=== PATIENT | female | born 1940 | race Caucasian/White ===

== ENCOUNTER 2019-03-15 08:57 | Observation (INO) | payer OTHER ==
--- NOTE | 2019-03-15 09:56 | PDOC ---
History of Present Illness - General Chief Complaint: Lightheaded Stated Complaint: DIZZINESS Time Seen by Provider: 03/15/19 09:30 - History of Present Illness Initial Comments: 03/15/19 10:26 78 yo F with h/o DM, HTN who p/w lightheadedness. Patient Omani speaking, reports lightheadedness this AM at approximately 0600. Patient reports feeling that she was going to "faint," when she sat up to get out of bed. Denies h/o similar presentation. Denies LOC. Symptoms now improved. Worse with exertion. Denies other complaints. Patient reportedly visiting daughter ( at bedside) from [facility] x 2 months. Patient denies CHANDLER, vision change, palpitations, cough, wheezing, orthopena, PND , leg swelling/pain, N/V, F,C, CP, SOB, urinary complaints, hematuria, BPR, abdominal pain, diarrhea, constipation, weakness, sensory changes. PMHx: as noted above. Denies h/o ACS/AL, stent placement, CABG, abnml stress testing. Denies h/o PE/DVT ROS: as noted SHx: Denies Etoh, IVDA, tobacco use Allergies: NKDA Past History - Past Medical History Allergies/Adverse Reactions: Allergies Allergy/AdvReac Type Severity Reaction Status Date / Time No Known Allergies Allergy Verified 03/15/19 09:05 Home Medications: Ambulatory Orders RX: Insulin (Novolog 70/30) [Novolog Mix 70/30 Vial -] 0 unit SQ BID 03/15/19 RX: Nifedipine 20 mg PO DAILY 03/15/19 COPD: No Diabetes: Yes HTN: Yes - Suicide/Smoking/Psychosocial Hx Smoking History: Never smoked Hx Alcohol Use: No Drug/Substance Use Hx: No Review of Systems - Review of Systems Comments:: 03/15/19 10:29 GENERAL/CONSTITUTIONAL: No fever or chills. No weakness. HEAD, EYES, EARS, NOSE AND THROAT: No change in vision. No ear pain or discharge. No sore throat. CARDIOVASCULAR: No chest pain or shortness of breath RESPIRATORY: No cough, wheezing, or hemoptysis. GASTROINTESTINAL: No nausea, vomiting, diarrhea or constipation. GENITOURINARY: No dysuria, frequency, or change in urination. MUSCULOSKELETAL: No joint or muscle swelling or pain. No neck or back pain. SKIN: No rash NEUROLOGIC: + Lightheadedness. No headache, vertigo, loss of consciousness, or change in strength/sensation. ENDOCRINE: No increased thirst. No abnormal weight change HEMATOLOGIC/LYMPHATIC: No anemia, easy bleeding, or history of blood clots. ALLERGIC/IMMUNOLOGIC: No hives or skin allergy. *Physical Exam - Vital Signs Last Vital Signs Temp Pulse Resp BP Pulse Ox 98.4 F 72 16 161/61 98 03/15/19 09:01 03/15/19 09:01 03/15/19 09:01 03/15/19 09:01 03/15/19 09:01 - Physical Exam Comments: 03/15/19 10:29 GENERAL: Awake, alert, and fully oriented, in no acute distress HEAD: No signs of trauma, normocephalic, atraumatic EYES: PERRLA, EOMI, sclera anicteric, conjunctiva clear ENT: Auricles normal inspection, hearing grossly normal, nares patent, oropharynx clear without exudates. Moist mucosa NECK: Normal ROM, supple, no lymphadenopathy, JVD, or masses LUNGS: No distress, speaks full sentences, clear to auscultation bilaterally HEART: Regular rate and rhythm, normal S1 and S2, no murmurs, rubs or gallops, peripheral pulses normal and equal bilaterally. ABDOMEN: Soft, nontender, normoactive bowel sounds. No guarding, no rebound. No masses EXTREMITIES : Normal inspection, Normal range of motion, no edema. No clubbing or cyanosis. NEUROLOGICAL: Neg dysmetria on FTN. Nml FATOU. Cranial nerves II through XII grossly intact. Normal speech, normal gait, no focal sensorimotor deficits SKIN: Warm, Dry, normal turgor, no rashes or lesions noted Heart Score/ECG Review - History History: Slightly suspicious - Electrocardiogram EKG: Non specific repolarization disturbance - Age Age: >/= 65 - Risk Factors Risk Factors Heart Score: Yes Hx Hypercholesterolemia, Yes Hx Hypertension, Yes Hx Diabetes, Yes Smoking History, Yes Positive family hx of cardiac disease, Yes Hx Obesity Based on the list above the patient has:: >/=3 risk factors or Hx atherosclerotic disease - Troponin Troponin: 1-3x normal limit - Score Heart Score - Total: 6 ED Treatment Course - LABORATORY CBC & Chemistry Diagram: 03/15/19 10:20 03/15/19 10:20 - RADIOLOGY Radiology Studies Ordered: Category Date Time Status CXRPORT [CHEST X-RAY PORTABLE*] [RAD] Stat Radiology 03/15/19 09:30 Taken Medical Decision Making - Medical Decision Making 03/15/19 09:55 78 yo F with h/o DM, HTN who p/w lightheadedness. BP 161/61. Vitals otherwisne wnl, AF, A&Ox3. Physical exam unremarkable. Neurologically intact. Will assess for VBI/TIA, cardiac dysarrythmias, hypoglycemia, electrolyte abnml, metabolic and toxic derangements, acid-base disturbances, infection. ED Course: EKG: NSR with 1st degree AV block , Pr interval 408, absent CHERYL, STD. Nml axis. Nml R wave progression. Absent Q waves. 03/15/19 12:01 Laboratory Tests 03/15/19 03/15/19 03/15/19 10:20 10:20 11:15 Random Glucose 202 H Troponin I 0.10 H Urine Ketones Negative Urine Blood Trace Urine Nitrite Negative Ur Leukocyte Esterase Trace Urine WBC (Auto) 51 Urine Bacteria (Auto) 20.3 03/15/19 12:30 Heart score 6 Admit to tele/inpt 03/15/19 13:06 CTH: Unremarkable Patient endorsed to Dr. Lai Admit tele/obs *DC/Admit/Observation/Transfer Diagnosis at time of Disposition: Lightheadedness - Discharge Dispostion Condition at time of disposition: Stable Decision to Admit order: Yes - Referrals - Patient Instructions - Post Discharge Activity
[2019-03-15 10:35] LABS: BASO % 0.8 % (0-2.0); EOS % 0.8 % (0-4.5); HEMATOCRIT 39.2 % (32.4-45.2); HEMOGLOBIN 13.4 GM/dL (10.7-15.3); LYMPH % 20.3 % (8-40); MCHC 34.2 g/dl (32.0-36.0); MEAN CELL VOLUME 81.6 fl (80-96); MONO % 6.1 % (3.8-10.2); PLATELET COUNT 207 K/MM3 (134-434); RDW 13.7 % (11.6-15.6); WHITE BLOOD COUNT 6.8 K/mm3 (4.0-10.0)
[2019-03-15 10:47] LABS: INR 0.96 (0.83-1.09); PROTHROMBIN TIME (PATIENT) 11.3 SEC (9.7-13.0)
[2019-03-15 11:02] LABS: ALBUMIN 3.5 g/dl (3.4-5.0); BILIRUBIN,TOTAL 0.4 mg/dL (0.2-1); BLOOD UREA NITROGEN 16.1 mg/dL (7-18); CREATININE 0.6 mg/dL (0.55-1.3); POTASSIUM 4.3 mmol/L (3.5-5.1); TOT PROT 7.5 g/dl (6.4-8.2)
--- NOTE | 2019-03-15 11:09 | PDOC ---
Attending Attestation - Resident Resident Name: Aidan Samuel - ED Attending Attestation I have performed the following: I have examined & evaluated the patient, The case was reviewed & discussed with the resident, I agree w/resident's findings & plan, Exceptions are as noted - HPI HPI: 78 yo F history DM, HTN presents with episode of lightheadedness/dizziness this morning. Denies cp, SOB. She describes the event as feeling like she almost passed out. Currently asymptomatic. No recent illness, fevers. She is currently visiting from , has had cardio eval in the past (unclear on details), but does not have ongoing f/u with financial management consultant. - Physicial Exam PE: GENERAL: Awake, alert, and fully oriented, in no acute distress HEAD: No signs of trauma EYES: PERRLA, EOMI, sclera anicteric, conjunctiva clear ENT: Auricles normal inspection, hearing grossly normal, nares patent, oropharynx clear without exudates. Moist mucosa NECK: Normal ROM, supple, no lymphadenopathy, JVD, or masses LUNGS: Breath sounds equal, clear to auscultation bilaterally. No wheezes, and no crackles HEART: Regular rate and rhythm, normal S1 and S2, no murmurs, rubs or gallops ABDOMEN: Soft, nontender, normoactive bowel sounds. No guarding, no rebound. No masses EXTREMITIES: Normal range of motion, no edema. No clubbing or cyanosis. No cords, erythema, or tenderness NEUROLOGICAL: Cranial nerves II through XII grossly intact. Normal speech. Motor and sensation intact SKIN: Warm, Dry, normal turgor, no rashes or lesions noted. - Medical Decision Making Pt with episode of near syncope this AM, multiple cardiac risk factors. Troponin found to be 0.10. Results of any prior workup are not available as she is visiting from [facility] on obs. Heart Score/ECG Review - History History: Moderately suspicious - Electrocardiogram EKG: Normal - Age Age: >/= 65 - Risk Factors Risk Factors Heart Score: Yes Hx Hypertension, Yes Hx Diabetes, Yes Hx Obesity Based on the list above the patient has:: >/=3 risk factors or Hx atherosclerotic disease - Troponin Troponin: 1-3x normal limit - Score Heart Score - Total: 6
[2019-03-15 11:35] LABS: EPI CELLS 8.6 /HPF (0-5/HPF); HYALINE CASTS 4 /lpf (0-8); URINE APPEARANCE CLOUDY; URINE BACTERIA 20.3 /hpf (NEGATIVE); URINE BILIRUBIN NEGATIVE (NEGATIVE); URINE COLOR YELLOW; URINE GLUCOSE (UA) 3+ (NEGATIVE); URINE KETONE NEGATIVE (NEGATIVE); URINE LEUK ESTERASE TRACE (NEGATIVE); URINE NITRITE NEGATIVE (NEGATIVE); URINE PROTEIN 2+ (NEGATIVE); URINE UROBILINOGEN 0.2 mg/dL (0.2-1.0); URINE WBC 51 /hpf (0-5)
[2019-03-15 12:18] LABS: URINE RBC 35.9 /hpf (0-4); YEAST NONE SEEN (NEGATIVE)
--- NOTE | 2019-03-15 16:45 | EKG ---
Test Reason : Blood Pressure : / mmHG Vent. Rate : 073 BPM Atrial Rate : 073 BPM P-R Int : 408 ms QRS Dur : 088 ms QT Int : 384 ms P-R-T Axes : 006 070 021 degrees QTc Int : 423 ms SINUS RHYTHM WITH 1ST DEGREE A-V BLOCK SEPTAL INFARCT , AGE UNDETERMINED ABNORMAL ECG NO PREVIOUS ECGS AVAILABLE Confirmed by RUTH ANN HERNANDEZ MD ([id number]) on 03/15/2019 4:44:57 PM Referred By: Confirmed By:RUTH ANN HERNANDEZ MD
--- NOTE | 2019-03-15 17:59 | CON.CARD ---
Consult Consult Specialty:: Cardiology Referred by:: Leatha Jauregui MD Reason for Consultation:: Near syncope - History of Present Illness Chief Complaint: Near syncope History of Present Illness: 78 yo F history DM, HTN presents with episode of positiona; lightheadedness/ dizziness this morning getting out of bed. Denies cp, SOB. She describes the event as feeling like she almost passed out. Currently asymptomatic. She is currently visiting from , denies chest pain, dyspnea, palpitations, true syncope, orthopnea, PND, LE edema. Patient is taking short acting nifedipine from ? - History Source History Provided By: Family Member Limitations to Obtaining History: Language Barrier - Alcohol/Substance Use Hx Alcohol Use: No - Smoking History Smoking history: Never smoked Home Medications - Allergies Allergies/Adverse Reactions: Allergies Allergy/AdvReac Type Severity Reaction Status Date / Time No Known Allergies Allergy Verified 03/15/19 09:05 - Home Medications Home Medications: Ambulatory Orders Insulin (Novolog 70/30) [Novolog Mix 70/30 Vial -] 0 unit SQ BID 03/15/19 Nifedipine 20 mg PO DAILY 03/15/19 Review of Systems - Review of Systems Neurological: reports: Dizziness Vital Signs: Vital Signs Temperature 98.1 F 03/15/19 17:26 Pulse Rate 69 03/15/19 17:26 Respiratory Rate 18 03/15/19 17:26 Blood Pressure 160/70 03/15/19 17:26 O2 Sat by Pulse Oximetry (%) 100 03/15/19 17:26 Constitutional: Yes: No Distress, Calm Neck: Yes: Supple Respiratory: Yes: Regular, CTA Bilaterally Gastrointestinal: Yes: Normal Bowel Sounds, Soft, Abdomen, Obese Cardiovascular: Yes: Regular Rate and Rhythm JVD: No Carotid Bruit: No Heart Sounds: Yes: S1, S2 Edema: No - Other Data Labs, Other Data: CBC, BMP 03/15/19 10:20 03/15/19 10:20 INR, PTT INR 0.96 (0.83-1.09) 03/15/19 10:20 Troponin, BNP 03/15/19 03/15/19 10:20 13:38 Troponin I 0.10 H 0.10 H Troponin, BNP 03/15/19 03/15/19 10:20 13:38 Troponin I 0.10 H 0.10 H NSR @ 73 1st deg AVB Ejection Fraction %: LVEF > or = 40 % Imaging - Results Chest X-ray: Report Reviewed (NAD) Cat Scan: Report Reviewed (HCT: No acute changes) Problem List - Problems (1) Demand ischemia Code(s): I24.8 - OTHER FORMS OF ACUTE ISCHEMIC HEART DISEASE (2) Diabetes Code(s): E11.9 - TYPE 2 DIABETES MELLITUS WITHOUT COMPLICATIONS Qualifiers: Diabetes mellitus type: type 2 (3) HTN (hypertension) Code(s): I10 - ESSENTIAL (PRIMARY) HYPERTENSION Qualifiers: Hypertension type: essential hypertension Qualified Code(s): I10 - Essential (primary) hypertension (4) Lightheadedness Code(s): R42 - DIZZINESS AND GIDDINESS Assessment/Plan 1. Positional near syncope, suspect medication effect 2. Type 2 DM 3. Hypertensive heart disease 4. CAD, subendocardial ischemia P:1. Advised to change position slowly and dangle legs by edge of bed 2. D/c Nifedipine 20 tid, start losartan 25 qd for renovascular protection 3. Trend trops to confirm peak 4. laboratory monitor to r/o arrhythmia 5. Echocardiogram to assess ventricular and valve fxn 6. Thank you for consultative opportunity
--- NOTE | 2019-03-15 18:02 | HP ---
Admitting History and Physical - Primary Care Physician PCP: Leatha Jauregui - Admission History of Present Illness: 78 yo F history DM, HTN presents with episode of lightheadedness/dizziness this morning. Denies cp, SOB. She describes the event as feeling like she almost passed out. Currently asymptomatic. No recent illness, fevers. 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 - Past Medical History Cardiovascular: Yes: HTN Endocrine: Yes: Diabetes Mellitus - Smoking History Smoking history: Never smoked - Alcohol/Substance Use Hx Alcohol Use: No Home Medications - Allergies Allergies/Adverse Reactions: Allergies Allergy/AdvReac Type Severity Reaction Status Date / Time No Known Allergies Allergy Verified 03/15/19 09:05 - Home Medications Home Medications: Ambulatory Orders Insulin (Novolog 70/30) [Novolog Mix 70/30 Vial -] 0 unit SQ BID 03/15/19 Nifedipine 20 mg PO DAILY 03/15/19 Losartan Potassium [Cozaar -] 25 mg PO DAILY #30 tablet 03/16/19 Nifedipine [Procardia -] 20 mg PO TID #90 capsule 03/16/19 Physical Examination Vital Signs: Vital Signs Temperature 98.1 F 03/15/19 17:26 Pulse Rate 69 03/15/19 17:26 Respiratory Rate 18 03/15/19 17:26 Blood Pressure 160/70 03/15/19 17:26 O2 Sat by Pulse Oximetry (%) 100 03/15/19 17:26 Constitutional: Yes: No Distress HENT: Yes: Atraumatic Neck: Yes: Supple Cardiovascular: Yes: Regular Rate and Rhythm Respiratory: Yes: CTA Bilaterally Gastrointestinal: Yes: Normal Bowel Sounds Extremities: Yes: WNL Edema: No Peripheral Pulses WNL: Yes Neurological: Yes: Alert, Oriented Labs: CBC, BMP 03/15/19 10:20 03/15/19 10:20 Problem List - Problems (1) HTN (hypertension) Assessment/Plan: on meds stable monitor Code(s): I10 - ESSENTIAL (PRIMARY) HYPERTENSION Qualifiers: Hypertension type: essential hypertension Qualified Code(s): I10 - Essential (primary) hypertension (2) Diabetes Assessment/Plan: bgms sliding scale insulin Code(s): E11.9 - TYPE 2 DIABETES MELLITUS WITHOUT COMPLICATIONS Qualifiers: Diabetes mellitus type: type 2 (3) Lightheadedness Code(s): R42 - DIZZINESS AND GIDDINESS (4) Demand ischemia Assessment/Plan: fu troponins Code(s): I24.8 - OTHER FORMS OF ACUTE ISCHEMIC HEART DISEASE Assessment/Plan Laboratory Results - last 24 hr 03/15/19 03/15/19 03/15/19 10:20 10:20 10:20 WBC 6.8 RBC 4.80 Hgb 13.4 Hct 39.2 MCV 81.6 MCH 28.0 MCHC 34.2 RDW 13.7 Plt Count 207 MPV 8.0 Absolute Neuts (auto) 4.9 Neutrophils % 72.0 Lymphocytes % 20.3 Monocytes % 6.1 Eosinophils % 0.8 Basophils % 0.8 Nucleated RBC % 1 H PT with INR 11.30 INR 0.96 Sodium Potassium Chloride Carbon Dioxide Anion Gap BUN Creatinine Est GFR (CKD-EPI)AfAm Est GFR (CKD-EPI)NonAf Random Glucose Calcium Total Bilirubin AST ALT Alkaline Phosphatase Creatine Kinase 61 Troponin I 0.10 H Total Protein Albumin Urine Color Urine Appearance Urine pH Ur Specific [place] Urine Protein Urine Glucose (UA) Urine Ketones Urine Blood Urine Nitrite Urine Bilirubin Urine Urobilinogen Ur Leukocyte Esterase Urine WBC (Auto) Urine RBC (Auto) Urine Casts (Auto) U Epithel Cells (Auto) Urine Bacteria (Auto) Urine Yeast (Auto) 03/15/19 03/15/19 03/15/19 10:20 11:15 13:38 WBC RBC Hgb Hct MCV MCH MCHC RDW Plt Count MPV Absolute Neuts (auto) Neutrophils % Lymphocytes % Monocytes % Eosinophils % Basophils % Nucleated RBC % PT with INR INR Sodium 138 Potassium 4.3 Chloride 105 Carbon Dioxide 27 Anion Gap 6 L BUN 16.1 Creatinine 0.6 Est GFR (CKD-EPI)AfAm 102.62 Est GFR (CKD-EPI)NonAf 88.54 Random Glucose 202 H Calcium 9.0 Total Bilirubin 0.4 AST 13 L ALT 20 Alkaline Phosphatase 84 Creatine Kinase Troponin I 0.10 H Total Protein 7.5 Albumin 3.5 Urine Color Yellow Urine Appearance Cloudy Urine pH 5.0 Ur Specific [place] 1.011 Urine Protein 2+ H Urine Glucose (UA) 3+ H Urine Ketones Negative Urine Blood Trace Urine Nitrite Negative Urine Bilirubin Negative Urine Urobilinogen 0.2 Ur Leukocyte Esterase Trace Urine WBC (Auto) 51 Urine RBC (Auto) 35.9 Urine Casts (Auto) 4 U Epithel Cells (Auto) 8.6 Urine Bacteria (Auto) 20.3 Urine Yeast (Auto) None seen Active Medications Generic Name Dose Route Start Last Admin Trade Name Freq PRN Reason Stop Dose Admin Nifedipine 20 mg 03/15/19 22:00 Procardia Capsule - PO TID SAGE Active Medications Generic Name Dose Route Start Last Admin Trade Name Freq PRN Reason Stop Dose Admin Acetaminophen 650 mg 03/15/19 21:03 Tylenol - PO Q6H PRN FEVER Heparin Sodium (Porcine) 5,000 unit 03/15/19 22:00 03/16/19 09:25 Heparin - SQ 5,000 unit BID SAGE Administration Insulin Aspart 1 vial 03/15/19 22:00 03/16/19 17:01 Novolog Vial Sliding Scale - SQ 8 unit ACHS SAGE Administration Protocol Losartan Potassium 25 mg 03/15/19 19:30 03/16/19 09:25 Cozaar - PO 25 mg DAILY SAGE Administration
[2019-03-15] MEDS ORDERED: ACETAMINOPHEN 325 MG TABLET (FP) PO PRN (21:03)
[2019-03-15] MEDS ORDERED: LOSARTAN POTASSIUM 50 MG TABLET (FP) ONE (21:04)
[2019-03-15] MEDS ORDERED: HEPARIN NA (PORCINE) 5,000 UNITS/ML 1ML VIAL ONE (21:04)
[2019-03-15] MEDS: LOSARTAN POTASSIUM 25 MG TABLET PO SCH (21:45)
[2019-03-15] MEDS: HEPARIN NA (PORCINE) 5,000 UNITS/ML 1ML VIAL SQ SCH (21:50)
[2019-03-15] MEDS ORDERED: INSULIN (NOVOLOG) ASPART 100 UNITS/ML 10ML VIAL ONE (21:54)
[2019-03-15] MEDS: INSULIN SLIDING SCALE (NOVOLOG) 1 VIAL SQ SCH (22:00)
[2019-03-15] MEDS ORDERED: NIFEdipine 10 MG CAPSULE (FP) PO SCH (22:00)
[2019-03-16 02:10] VITALS: BMI 32.3
[2019-03-16] MEDS ORDERED: INSULIN (NOVOLOG) ASPART 100 UNITS/ML 10ML VIAL ONE (07:56)
[2019-03-16] MEDS: INSULIN SLIDING SCALE (NOVOLOG) 1 VIAL SQ SCH ×3 (07:59→17:01)
[2019-03-16] MEDS: LOSARTAN POTASSIUM 25 MG TABLET PO SCH (09:25)
[2019-03-16] MEDS: HEPARIN NA (PORCINE) 5,000 UNITS/ML 1ML VIAL SQ SCH (09:25)
--- NOTE | 2019-03-16 10:01 | PN ---
Progress Note, Physician Chief Complaint: Events noted Not in distress History of Present Illness: Patient was seen and examined. Awake and alert. Chart was reviewed Denies chest pain, SOB or palpitations - Current Medication List Current Medications: Active Medications Acetaminophen (Tylenol -) 650 mg PO Q6H PRN PRN Reason: FEVER Heparin Sodium (Porcine) (Heparin -) 5,000 unit SQ BID [facility] Last Admin: 03/16/19 09:25 Dose: 5,000 unit Insulin Aspart (Novolog Vial Sliding Scale -) 1 vial SQ ACHS [facility]; Protocol Last Admin: 03/16/19 07:59 Dose: 6 unit Losartan Potassium (Cozaar -) 25 mg PO DAILY [facility] Last Admin: 03/16/19 09:25 Dose: 25 mg - Objective Vital Signs: Vital Signs Temperature 98.9 F 03/16/19 08:25 Pulse Rate 77 03/16/19 08:25 Respiratory Rate 18 03/16/19 09:57 Blood Pressure 140/66 03/16/19 08:25 O2 Sat by Pulse Oximetry (%) 100 03/16/19 09:57 Eyes: Yes: PERRL HENT: Yes: Atraumatic Neck: Yes: Supple Cardiovascular: Yes: Regular Rate and Rhythm, S1, S2. No: Murmur Respiratory: Yes: CTA Bilaterally Gastrointestinal: Yes: Normal Bowel Sounds, Soft. No: Tenderness Edema: No Additional Findings/Remarks: - Review of Systems Constitutional: denies: Chills, Fever Cardiovascular: denies: Chest Pain, Palpitations, Shortness of Breath Respiratory: denies: Cough, Hemoptysis, Orthopnea, PND, SOB, SOB on Exertion Gastrointestinal: denies: Abdominal Pain, Constipation, Diarrhea, Melena, Nausea , Rectal Bleeding, Vomiting Musculoskeletal: denies: Back Pain, Joint Pain Neurological: denies Dizziness, Syncope. denies: Headache, Seizure Labs: CBC, BMP 03/15/19 10:20 03/15/19 10:20 INR, PTT INR 0.96 (0.83-1.09) 03/15/19 10:20 Problem List - Problems (1) Demand ischemia Code(s): I24.8 - OTHER FORMS OF ACUTE ISCHEMIC HEART DISEASE (2) Diabetes Code(s): E11.9 - TYPE 2 DIABETES MELLITUS WITHOUT COMPLICATIONS Qualifiers: Diabetes mellitus type: type 2 (3) HTN (hypertension) Code(s): I10 - ESSENTIAL (PRIMARY) HYPERTENSION Qualifiers: Hypertension type: essential hypertension Qualified Code(s): I10 - Essential (primary) hypertension (4) Lightheadedness Code(s): R42 - DIZZINESS AND GIDDINESS Assessment/Plan 1. Positional near syncope, suspect medication effect 2. Type 2 DM 3. Hypertensive heart disease 4. CAD, subendocardial ischemia PLAN: 1. Continue Losartan 25 mg QD as tolerated 3. 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 Echocardiogram was reviewed. Normal LV systolic function, mild MR and TR Humble Auguste MD
--- NOTE | 2019-03-16 11:09 | DS ---
Physical Examination Vital Signs: Vital Signs Temperature 98.9 F 03/16/19 08:25 Pulse Rate 77 03/16/19 08:25 Respiratory Rate 18 03/16/19 09:57 Blood Pressure 140/66 03/16/19 08:25 O2 Sat by Pulse Oximetry (%) 100 03/16/19 09:57 Constitutional: Yes: No Distress HENT: Yes: Atraumatic Neck: Yes: Supple Cardiovascular: Yes: Regular Rate and Rhythm Respiratory: Yes: CTA Bilaterally Gastrointestinal: Yes: Normal Bowel Sounds Extremities: Yes: WNL Neurological: Yes: Alert, Oriented Labs: CBC, BMP 03/15/19 10:20 03/15/19 10:20 Discharge Summary Reason For Visit: LIGHTHEADNESS Current Active Problems Demand ischemia (Acute) Diabetes (Acute) HTN (hypertension) (Acute) Lightheadedness (Acute) Condition: Stable - Instructions Diet, Activity, Other Instructions: STOP NIFEDIPINE Referrals: Humble Auguste MD [Staff Physician] - Leatha Jauregui MD [Staff Physician] - - Home Medications Comprehensive Discharge Medication List: Ambulatory Orders Insulin (Novolog 70/30) [Novolog Mix 70/30 Vial -] 0 unit SQ BID 03/15/19 Losartan Potassium [Cozaar -] 25 mg PO DAILY #30 tablet 03/16/19 dc home on po augmentin for uti d/w id stop nifedipine as per cardiology
--- NOTE | 2019-03-16 11:10 | ECHO ---
Name: ZAHRAA WISEMAN Exam:Adult Echocardiogram Study Date: 03/16/2019 09:26 AM Age: 78 yrs Reason For Study: HYPERTENSIVE HEART FUNCTION Height: 58 in Weight: 156 lb BSA: 1.6 m2 MMode/2D Measurements & Calculations IVSd: 0.98 cm Ao root diam: 2.6 cm LVIDd: 4.9 cm LA dimension: 3.7 cm LVIDs: 3.1 cm LVPWd: 0.84 cm EDV(Teich): 110.7 ml LVOT diam: 2.0 cm ESV(Teich): 37.9 ml Doppler Measurements & Calculations MV E max brian: 56.8 cm/sec Ao V2 max: 154.2 cm/sec MV A max brian: 98.2 cm/sec Ao max P.5 mmHg MV E/A: 0.58 Ao V2 mean: 104.8 cm/sec MV dec time: 0.14 sec Ao mean P.9 mmHg Ao V2 VTI: 34.7 cm AI P1/2t: 733.6 msec URVASHI(V,D): 1.7 cm2 AI max brian: 370.2 cm/sec LV V1 max P.9 mmHg AI max P.1 mmHg LV V1 max: 84.7 cm/sec AI dec slope: 147.8 cm/sec2 MR max brian: 329.4 cm/sec TR max brian: 163.8 cm/sec MR max P.4 mmHg TR max P.8 mmHg Med Peak E' Brian: 7.7 cm/sec Med E/e': 7.4 Lat Peak E' Brian: 9.3 cm/sec Lat E/e': 6.1 Procedure A two-dimensional transthoracic echocardiogram with color flow and Doppler was performed. The study w as technically difficult with many images being suboptimal in quality. Left Ventricle The left ventricle is normal in size. Left ventricular systolic function is normal. Ejection Fraction = 65%. E/A reversal consistent with but not diagnostic of poor LV compliance. Right Ventricle The right ventricle is normal in size and function. Atria Normal left and right atrial size and function. Mitral Valve There is mild mitral annular calcification. There is mild mitral regurgitation. Tricuspid Valve The tricuspid valve is normal. There is mild tricuspid regurgitation. Right ventricular systolic pres sure is normal. Aortic Valve There is mild aortic sclerosis.;. The aortic valve opens well. No hemodynamically significant valvula r aortic stenosis. Mild aortic regurgitation. Pulmonic Valve The pulmonic valve is not well visualized. The pulmonic valve is not well seen, but is grossly normal . Trace pulmonic valvular regurgitation. Great Vessels The aortic root is normal size. Pericardium/Pleura There is no pericardial effusion. Interpretation Summary Left ventricular systolic function is normal. Ejection Fraction = 65%. E/A reversal consistent with but not diagnostic of poor LV compliance The right ventricle is normal in size and function. There is mild mitral annular calcification. There is mild mitral regurgitation. There is mild tricuspid regurgitation. There is mild aortic sclerosis.; Mild aortic regurgitation. Trace pulmonic valvular regurgitation. There is no pericardial effusion. MD Ja Malcolm 03/16/2019 11:10 AM
[2019-03-16 18:47] VITALS: BP 141/68; PULSE 72; TEMP 98.5
== END 2019-03-16 20:47 | disposition home or self-care (01) ==
LOC: JER 08:57 → JERBED 12:31 → J4W 23:19
PROVIDERS: ADMIT Internal Medicine; ATTEND Internal Medicine
PROC: 3E013VG Introduction of Insulin into Subcutaneous Tissue, Percutaneous Approach (ICD-10-PCS; principal; 2019-03-15)
PROC: 3E013GC Introduction of Other Therapeutic Substance into Subcutaneous Tissue, Percutaneous Approach (ICD-10-PCS; 2019-03-15)
DX: R42 Dizziness and giddiness (principal); I10 Essential (primary) hypertension; E11.9 Type 2 diabetes mellitus without complications; Z79.4 Long term (current) use of insulin; I24.8 Other forms of acute ischemic heart disease
CPT/HCPCS: 36415; 70450-TC; 71045-TC-FY; 80053; 80061; 81003; 82550; 82962; 83036; 83721; 84443; 84484; 85025; 85610; 87077; 87086; 87186; 93005; 93010; 93306-TC; 96372; 99285-25; G0378; J1644

== ENCOUNTER 2020-06-20 18:32 | Emergency (ER) | payer OTHER ==
[2020-06-20 18:41] VITALS: BP 134/83; PULSE 84; TEMP 98.6; BMI 31.3
--- OUTSIDE RECORDS SUMMARY | 2020-06-20 18:50 | XMS ---
:1940 Author Organization [facility] Support Name Relationship Address Phone RE Unavailable Unavailable Unavailable LUZ WISEMAN DAUGHTER [address] [phone] [place] [address] Re-disclosure Warning The records that you are about to access may contain information from federally- assisted alcohol or drug abuse programs. If such information is present, then the following federally mandated warning applies: This information has been disclosed to you from records protected by federal confidentiality rules (42 CFR part 2). The federal rules prohibit you from making any further disclosure of this information unless further disclosure is expressly permitted by the written consent of the person to whom it pertains or as otherwise permitted by 42 CFR part 2. A general authorization for the release of medical or other information is NOT sufficient for this purpose. The Federal rules restrict any use of the information to criminally investigate or prosecute any alcohol or drug abuse patient.The records that you are about to access may contain highly sensitive health information, the redisclosure of which is protected by Article 27-F of the [facility] Public Health law. If you continue you may haveaccess to information: Regarding HIV / AIDS; Provided by facilities licensed or operated by the [facility] Office of Mental Health; or Provided by the [facility] Office for People With Developmental Disabilities. If such information is present, then the following [facility] mandated warning applies: This information has been disclosed to you from confidential records which are protected by state law. State law prohibits you from making any further disclosure of this information without the specific written consent of the person to whom it pertains, or as otherwise permitted by law. Any unauthorized further disclosure in violation of state law may result in a fine or care home sentence or both. A general authorization for the release of medical or other information is NOT sufficient authorization for further disclosure. Insurance Providers Payer name Policy type Policy ID Covered Covered democrat's Policy P billy / Coverage democrat ID relationship to Obrien Inf ormation type obrien MEDICARE [id number] MEDICAID [id number] MEDICARE [id number]
--- NOTE | 2020-06-20 20:10 | PDOC ---
History of Present Illness - General Chief Complaint: Lightheaded Stated Complaint: HYPERTENSION Time Seen by Provider: 06/20/20 20:03 History Source: Patient - History of Present Illness Initial Comments: 06/20/20 20:20 80-year-old female brought in by daughter complaining of lightheadedness and heaviness to head with pressure 200/140 at home. Daughter reports that she believes patient took an extra dose of vitamin D instead of her blood pressure medication. Prior to arrival patient took her dose of losartan now her symptoms are slowly improving. Denies chest pain, diaphoresis, nausea, vomiting, lightheadedness at this time. Past medical history of insulin-dependent diabetes, hypercholesterolemia, hypertension. Past History - Medical History Allergies/Adverse Reactions: Allergies Allergy/AdvReac Type Severity Reaction Status Date / Time No Known Allergies Allergy Verified 06/20/20 18:38 Home Medications: Ambulatory Orders Insulin (Novolog 70/30) [Novolog Mix 70/30 Vial -] 0 unit SQ BID 03/15/19 Amoxicillin/Potassium Clav [Augmentin 875-125 Tablet] 1 each PO BID #14 tablet 03/16/19 Losartan Potassium [Cozaar -] 25 mg PO DAILY #30 tablet 03/16/19 COPD: No Diabetes: Yes HTN: Yes Hypercholesterolemia: Yes - Immunization History Immunization Up to Date: Yes - Psycho-Social/Smoking History Smoking History: Never smoked - Substance Abuse Hx (Audit-C & DAST Scrn) How often the patient has a drink containing alcohol: Never Score: In Men: 4 or > Positive; In Women: 3 or > Positive: 0 Screen Result (Pos requires Nsg. Audit-10AR): Negative In the last yr the pt used illegal drug/Rx for NonMed reason: No Score: Yes response is considered Positive: 0 Screen Result (Positive result requires Nsg. DAST-10): Negative Review of Systems - Review of Systems Able to Perform ROS?: Yes Is the patient limited Lao proficient: No Constitutional: No: Symptoms Reported, See HPI, Chills, Diaphoresis, Fever, Loss of Appetite, Malaise, Night Sweats, Weakness, Weight Stable, Unintentional Wgt. Loss, Unexplained wgt Loss, Other Cardiac (ROS): Yes: Lightheadedness. No: Symptoms Reported, See HPI, Chest Pain, Edema, Irregular Heart Rate, Palpitations, Syncope, Chest Tightness, Other ABD/GI: No: Symptoms Reported, See HPI, Abdominal Distended, Abd. Pain w/ defecation, Blood Streaked Bowels, Constipated, Diarrhea, Difficulty Swallowing, Nausea, Poor Appetite, Poor Fluid Intake, Rectal Bleeding, Vomiting, Indigestion, Abdominal cramping, Tarry Stools, Other *Physical Exam - Vital Signs Last Vital Signs Temp Pulse Resp BP Pulse Ox 98.6 F 84 20 134/83 100 06/20/20 18:38 06/20/20 18:38 06/20/20 18:38 06/20/20 18:38 06/20/20 18:38 - Physical Exam General Appearance: Yes: Appropriately Dressed Respiratory/Chest: positive: Lungs Clear, Normal Breath Sounds Gastrointestinal/Abdominal: positive: Normal Bowel Sounds, Soft. negative: Tender Musculoskeletal: positive: Normal Inspection Extremity: positive: Normal Capillary Refill, Normal Inspection, Delayed Capillary Refill Integumentary: positive: Normal Color, Dry, Warm Neurologic: positive: Fully Oriented, Alert, Normal Mood/Affect Heart Score/ECG Review - History History: Slightly suspicious - Electrocardiogram EKG: Normal - Age Age: >/= 65 - Risk Factors Risk Factors Heart Score: Yes Hx Hypercholesterolemia, Yes Hx Hypertension, Yes Hx Diabetes Based on the list above the patient has:: 1-2 risk factors - Troponin Troponin: </= normal limit - Score Heart Score - Total: 3 - ECG Intrepretation Rhythm: Regular Rhythm Comment:: 06/20/20 22:10 sinus rhythm with 1st degree AV block: 75 bpm ED Treatment Course - LABORATORY CBC & Chemistry Diagram: 06/20/20 18:34 06/20/20 18:34 Medical Decision Making - Medical Decision Making 06/21/20 05:55 A: lightheadedness P: labs EKG Strict return precautions reviewed with daughter. Daughter and patient ve rbalized understanding Discharge - Discharge Information Problems reviewed: Yes Clinical Impression/Diagnosis: Lightheadedness HTN (hypertension) Qualifiers: Hypertension type: unspecified Qualified Code(s): I10 - Essential (primary) hypertension Condition: Improved Disposition: HOME - Follow up/Referral Referrals: Eboni Sheridan MD [Primary Care Provider] - Call tomorrow - Patient Discharge Instructions Patient Printed Discharge Instructions: Essential Hypertension Additional Instructions: Please follow-up with your primary doctor. Return to the emergency room for any worsening symptoms - Post Discharge Activity
[2020-06-20 20:56] LABS: BASO % 0.6 % (0-2.0); EOS % 1.7 % (0-4.5); HEMATOCRIT 39.2 % (32.4-45.2); HEMOGLOBIN 13.4 GM/dL (10.7-15.3); LYMPH % 24.1 % (8-40); MCH 29.3 pg (25.7-33.7); MCHC 34.2 g/dl (32.0-36.0); MEAN CELL VOLUME 85.8 fl (80-96); MEAN PLT VOLUME 8.5 fl (7.5-11.1); MONO % 6.9 % (3.8-10.2); NEUT % 66.7 % (42.8-82.8); PLATELET COUNT 222 K/MM3 (134-434); RBC 4.57 M/mm3 (3.60-5.2); RDW 13.8 % (11.6-15.6); WHITE BLOOD COUNT 8.7 K/mm3 (4.0-10.0)
[2020-06-20 21:21] LABS: ALBUMIN 3.6 g/dl (3.4-5.0); ALK PHOS 75 U/L (45-117); ANION GAP 6 MMOL/L (8-16); BILIRUBIN,TOTAL 0.6 mg/dL (0.2-1); BLOOD UREA NITROGEN 21.4 mg/dL (7-18); CALCIUM 9.4 mg/dL (8.5-10.1); CHLORIDE 100 mmol/L (98-107); CO2 28 mmol/L (21-32); CREATININE 0.9 mg/dL (0.55-1.3); GLUCOSE,RANDOM 284 mg/dL (74-106); POTASSIUM 5.1 mmol/L (3.5-5.1); SGOT/AST 15 U/L (15-37); SGPT/ALT 23 U/L (13-61); SODIUM 133 mmol/L (136-145); TOT PROT 7.6 g/dl (6.4-8.2)
[2020-06-20 21:50] LABS: EPI CELLS 7 /uL (0-25.1); HYALINE CASTS 0 /uL (0-3.1); PH,URINE 7.5 (5.0-8.0); URINE APPEARANCE CLEAR; URINE BACTERIA 7 /uL (0-1359); URINE BILIRUBIN NEGATIVE (NEGATIVE); URINE COLOR YELLOW; URINE GLUCOSE (UA) 2+ (NEGATIVE); URINE KETONE NEGATIVE (NEGATIVE); URINE LEUK ESTERASE NEGATIVE (NEGATIVE); URINE NITRITE NEGATIVE (NEGATIVE); URINE PROTEIN 2+ (NEGATIVE); URINE RBC 5 /uL (0-23.9); URINE UROBILINOGEN 0.2 mg/dL (0.2-1.0); URINE WBC 3 /uL (0-25.8)
--- NOTE | 2020-06-21 08:47 | EKG ---
Test Reason : Blood Pressure : / mmHG Vent. Rate : 075 BPM Atrial Rate : 075 BPM P-R Int : 430 ms QRS Dur : 094 ms QT Int : 374 ms P-R-T Axes : 041 059 020 degrees QTc Int : 417 ms SINUS RHYTHM WITH 1ST DEGREE A-V BLOCK POSSIBLE LEFT ATRIAL ENLARGEMENT BORDERLINE ECG WHEN COMPARED WITH ECG OF 15-MAR-2019 09:37, CRITERIA FOR SEPTAL INFARCT ARE NO LONGER PRESENT NONSPECIFIC T WAVE ABNORMALITY NO LONGER EVIDENT IN ANTERIOR LEADS Confirmed by Rey Romero MD ([id number]) on 06/21/2020 8:46:37 AM Referred By: Confirmed By:Rey Romero MD
== END 2020-06-20 22:39 | disposition home or self-care (01) ==
LOC: JER 18:32
DX: R42 Dizziness and giddiness (principal); I10 Essential (primary) hypertension
CPT/HCPCS: 36415; 70450-TC; 80053; 81003; 82550; 84484; 85025; 93005; 93010; 99285-25

== ENCOUNTER 2020-08-14 22:01 | Inpatient (IN) | payer OTHER ==
[2020-08-14 22:07] VITALS: BMI 31.3
[2020-08-14 23:12] LABS: BASO % 0.3 % (0-2.0); EOS % 2.1 % (0-4.5); HEMATOCRIT 40.1 % (32.4-45.2); LYMPH % 27.2 % (8-40); MCH 27.5 pg (25.7-33.7); MCHC 32.3 g/dl (32.0-36.0); MEAN CELL VOLUME 85.1 fl (80-96); MEAN PLT VOLUME 8.2 fl (7.5-11.1); MONO % 7.4 % (3.8-10.2); PLATELET COUNT 227 K/MM3 (134-434); RBC 4.71 M/mm3 (3.60-5.2); RDW 13.7 % (11.6-15.6); WHITE BLOOD COUNT 7.8 K/mm3 (4.0-10.0)
[2020-08-14 23:29] LABS: EPI CELLS 21 /uL (0-25.1); HYALINE CASTS 1 /uL (0-3.1); URINE APPEARANCE CLEAR; URINE BACTERIA 19 /uL (0-1359); URINE BILIRUBIN NEGATIVE (NEGATIVE); URINE COLOR YELLOW; URINE GLUCOSE (UA) NEGATIVE (NEGATIVE); URINE KETONE NEGATIVE (NEGATIVE); URINE LEUK ESTERASE TRACE (NEGATIVE); URINE NITRITE NEGATIVE (NEGATIVE); URINE PROTEIN 1+ (NEGATIVE); URINE RBC 2 /uL (0-23.9); URINE UROBILINOGEN 0.2 mg/dL (0.2-1.0); URINE WBC 10 /uL (0-25.8)
[2020-08-14 23:33] LABS: CHLORIDE 103 mmol/L (98-107); POTASSIUM 4.6 mmol/L (3.5-5.1); SODIUM 139 mmol/L (136-145)
[2020-08-14 23:35] LABS: ALBUMIN 3.5 g/dl (3.4-5.0); ANION GAP 6 MMOL/L (8-16); BLOOD UREA NITROGEN 24.2 mg/dL (7-18); CALCIUM 9.3 mg/dL (8.5-10.1); CO2 30 mmol/L (21-32)
[2020-08-14 23:36] LABS: GLUCOSE,RANDOM 148 mg/dL (74-106)
[2020-08-14 23:38] LABS: SGPT/ALT 19 U/L (13-61)
[2020-08-14 23:39] LABS: CREATININE 0.7 mg/dL (0.55-1.3); SGOT/AST 15 U/L (15-37)
[2020-08-14 23:40] LABS: BILIRUBIN,TOTAL 0.3 mg/dL (0.2-1); TOT PROT 7.8 g/dl (6.4-8.2)
[2020-08-14 23:41] LABS: ALK PHOS 69 U/L (45-117)
[2020-08-15] MEDS ORDERED: amLODIPine BESYLATE 2.5 MG TABLET (FP) PO SCH (05:13)
[2020-08-15] MEDS ORDERED: amLODIPine BESYLATE 2.5 MG TABLET (FP) ONE (05:46)
[2020-08-15 07:37] LABS: HEMATOCRIT 37.5 % (32.4-45.2); HEMOGLOBIN 12.5 GM/dL (10.7-15.3); MCHC 33.4 g/dl (32.0-36.0); MEAN CELL VOLUME 83.9 fl (80-96); MEAN PLT VOLUME 8.3 fl (7.5-11.1); PLATELET COUNT 232 K/MM3 (134-434); RBC 4.47 M/mm3 (3.60-5.2); RDW 13.5 % (11.6-15.6); WHITE BLOOD COUNT 6.7 K/mm3 (4.0-10.0)
[2020-08-15 07:46] LABS: POTASSIUM 4.6 mmol/L (3.5-5.1)
[2020-08-15 07:50] LABS: CALCIUM 9.2 mg/dL (8.5-10.1)
[2020-08-15 07:51] LABS: MAGNESIUM 2.2 mg/dL (1.8-2.4)
[2020-08-15 07:52] LABS: BLOOD UREA NITROGEN 19.4 mg/dL (7-18)
[2020-08-15 07:53] LABS: ALBUMIN 3.4 g/dl (3.4-5.0)
[2020-08-15 07:54] LABS: CREATININE 0.7 mg/dL (0.55-1.3)
[2020-08-15 07:56] LABS: PHOSPHOROUS 3.5 mg/dL (2.5-4.9); TOT PROT 7.5 g/dl (6.4-8.2)
[2020-08-15 07:57] LABS: BILIRUBIN,TOTAL 0.4 mg/dL (0.2-1)
[2020-08-15] MEDS: INSULIN SLIDING SCALE (NOVOLOG) 1 VIAL SQ SCH ×2 (08:20→12:00)
[2020-08-15] MEDS ORDERED: ASPIRIN COATED 81 MG TABLET.EC PO SCH (10:00)
[2020-08-15] MEDS ORDERED: amLODIPine BESYLATE 5 MG TABLET (FP) PO SCH (10:00)
[2020-08-15] MEDS ORDERED: ENOXAPARIN NA (PORCINE) 40 MG/0.4 ML DISP.SYRIN SQ SCH (10:00)
[2020-08-15] MEDS ORDERED: LOSARTAN POTASSIUM 50 MG TABLET PO SCH ×2 (10:00)
[2020-08-15] MEDS ORDERED: PT OWN MED DRAWER 7, Y5N ONE (11:30)
[2020-08-15] MEDS ORDERED: amLODIPine BESYLATE 5 MG TABLET (FP) ONE (11:38)
[2020-08-15] MEDS ORDERED: LOSARTAN POTASSIUM 50 MG TABLET ONE (11:38)
[2020-08-15] MEDS ORDERED: ASPIRIN COATED 81 MG TABLET.EC ONE (11:38)
[2020-08-15] MEDS ORDERED: ENOXAPARIN NA (PORCINE) 40 MG/0.4 ML DISP.SYRIN SQ ONE (11:39)
[2020-08-15 15:59] VITALS: BP 150/77; PULSE 79; TEMP 98.4
[2020-08-15] MEDS ORDERED: ATORVASTATIN CA 20 MG TABLET (FP) PO SCH (22:00)
== END 2020-08-15 16:00 | disposition home or self-care (01) | DRG 305 ==
LOC: JER 22:01 → JERBED 08-15 00:16 → OBSVTOIN 08-15 05:11
PROVIDERS: ADMIT Hospitalist
DX: I16.0 Hypertensive urgency (principal); E11.9 Type 2 diabetes mellitus without complications; E78.00 Pure hypercholesterolemia, unspecified; R42 Dizziness and giddiness; H53.8 Other visual disturbances; I44.0 Atrioventricular block, first degree
CPT/HCPCS: 36415; 70450-TC; 71046-TC-FY; 80053; 80061; 81003; 82550; 82962; 83036; 83721; 83735; 84100; 84484; 85025; 85027; 93005; 93010; 93306-TC; 93880-TC; 97116-GP; 97161-GP; 99285-25; C9803; G0378; U0003

== ENCOUNTER 2020-08-30 13:52 | Emergency (ER) | payer OTHER ==
[2020-08-30 14:08] VITALS: BMI 31.3
[2020-08-30 15:29] LABS: BASO % 0.4 % (0-2.0); EOS % 0.6 % (0-4.5); HEMATOCRIT 37.8 % (32.4-45.2); HEMOGLOBIN 12.3 GM/dL (10.7-15.3); LYMPH % 15.2 % (8-40); MCH 27.8 pg (25.7-33.7); MCHC 32.6 g/dl (32.0-36.0); MEAN CELL VOLUME 85.2 fl (80-96); MEAN PLT VOLUME 8.5 fl (7.5-11.1); NEUT % 78.8 % (42.8-82.8); PLATELET COUNT 237 K/MM3 (134-434); RBC 4.44 M/mm3 (3.60-5.2); RDW 13.5 % (11.6-15.6); WHITE BLOOD COUNT 8.8 K/mm3 (4.0-10.0)
[2020-08-30 15:52] LABS: POTASSIUM 4.6 mmol/L (3.5-5.1)
[2020-08-30 15:54] LABS: CALCIUM 9.1 mg/dL (8.5-10.1)
[2020-08-30 15:55] LABS: ALBUMIN 3.8 g/dl (3.4-5.0); BLOOD UREA NITROGEN 28.4 mg/dL (7-18)
[2020-08-30 15:58] LABS: CREATININE 0.9 mg/dL (0.55-1.3)
[2020-08-30 16:00] LABS: TOT PROT 7.9 g/dl (6.4-8.2)
[2020-08-30 16:15] LABS: BILIRUBIN,TOTAL 0.3 mg/dL (0.2-1)
[2020-08-30 17:00] VITALS: BP 172/85; PULSE 76; TEMP 97.9
== END 2020-08-30 17:58 | disposition home or self-care (01) ==
LOC: JER 13:52
DX: I10 Essential (primary) hypertension (principal)
CPT/HCPCS: 36415; 80053; 85025; 93005; 93010; 99284-25